=== PATIENT | female | born 1990 | race Caucasian/White ===

== ENCOUNTER 2020-02-04 13:18 | Outpatient (CLI) | payer BC, SELFPAY ==
--- NOTE | 2020-02-04 13:44 | CT_ITS ---
WS: [id number] CT HEAD WITH AND WITHOUT CONTRAST HISTORY: HISTORY OF BRAIN TUMOR, prior surgery 11 years ago. Headaches. TECHNIQUE: Noncontrast 2.5 mm axial images obtained from the vertex to the skull base. Additional dori ging performed at 2.5 mm axial images status post IV contrast. Bone and soft tissue windows are revie wed. All CT scans at [facility] use at least one of these dose optimization techniques: a utomated exposure control; mA and/or kV adjustment per patient size (includes targeted exams where do se is matched to clinical indication); or iterative reconstruction. CONTRAST: Omnipaque 300; 95 mL IV. DLP: 1984.08 mGy-cm. COMPARISON: Noncontrast head CT 06/21/2016 No acute intracranial hemorrhage, edema or midline shift. No enhancing mass or vascular malformations identified. Dural venous sinuses are normally enhancing. Visualized [place] is unremarkable. Paranasal sinuses as visualized: Clear. Mastoid air cells: Clear. Calvarium and scalp: Prior LEFT parietal temporal craniectomy site is stable. CT/CT head wo/w con [id number] IMPRESSION: 1. Stable CT head with and without contrast. 2. No enhancing lesions or significant volume loss. 3. Prior LEFT parietal temporal craniectomy site.
[2020-02-04] MEDS: iohexol 300 mg/mL 100 mL Btl IV (14:20)
== END 2020-02-04 13:19 | disposition home or self-care (01) ==
PROVIDERS: Family Provider Family Medicine; PCP Family Medicine; Visit Provider Family Medicine
DX: Z85.841 Personal history of malignant neoplasm of brain
CPT/HCPCS: 70470; Q9967

== ENCOUNTER 2021-01-29 14:12 | Outpatient (CLI) | payer BC, SELFPAY ==
--- NOTE | 2021-01-29 | US_ITS ---
WS: [id number] RIGHT UPPER QUADRANT ULTRASOUND HISTORY: ELEVATED LIVER ENZYMES COMPARISON: None available. Liver: 18.0 cm in length. Moderately enlarged liver. Severe hepatic steatosis. No bile duct dilatatio n identified. The entire liver is not imaged. Gallbladder: Normally distended gallbladder with no stones or wall thickening. CBD: 0.2 cm Pancreas: Poorly visualized. Right kidney: 12.2 cm in length. Normal size and echogenicity. No hydronephrosis or mass. Aorta and IVC: Unremarkable abdominal aorta and IVC. No ascites. US/US liver [id number] IMPRESSION: 1. Marked hepatic steatosis and hepatomegaly. 2. Negative gallbladder.
== END 2021-01-29 14:13 | disposition home or self-care (01) ==
LOC: RADOUTREAD 14:15
PROVIDERS: PCP Family Medicine; Visit Provider Family Medicine
DX: R94.5 Abnormal results of liver function studies (principal)
CPT/HCPCS: 76705

== ENCOUNTER → 2021-04-18 10:47 | Outpatient (BNVA) | payer BC, SELFPAY | PROVIDERS: PCP Family Medicine; Visit Provider Nurse Practitioner | DX: U07.1 COVID-19 (principal); R05 Cough | CPT/HCPCS: 71046; 80053; 85025; 85379; 86140 ==

== ENCOUNTER → 2021-04-19 15:55 | Outpatient (BNVA) | payer BC, SELFPAY | PROVIDERS: PCP Family Medicine; Visit Provider Nurse Practitioner | DX: U07.1 COVID-19 (principal); E11.65 Type 2 diabetes mellitus with hyperglycemia | CPT/HCPCS: 81000 ==

== ENCOUNTER → 2021-10-03 09:05 | Outpatient (BNVA) | payer BC, SELFPAY | PROVIDERS: PCP Family Medicine; Visit Provider Nurse Practitioner | DX: E11.65 Type 2 diabetes mellitus with hyperglycemia (principal) | CPT/HCPCS: 80053; 80061; 83036; 84443 ==

== ENCOUNTER → 2021-10-09 10:31 | Outpatient (BNVA) | payer BC, SELFPAY | PROVIDERS: PCP Family Medicine; Visit Provider Nurse Practitioner | DX: R74.8 Abnormal levels of other serum enzymes (principal); Z11.59 Encounter for screening for other viral diseases; K76.0 Fatty (change of) liver, not elsewhere classified | CPT/HCPCS: 80074 ==

== ENCOUNTER 2021-11-19 14:49 | Outpatient (CLI) | payer BC, SELFPAY ==
--- NOTE | 2021-11-19 15:30 | CT_ITS ---
WS: [id number] CT ABDOMEN WITH CONTRAST HISTORY: K76.0 - Fatty (change of) liver, not elsewhere classified Contiguous single phase 5 mm axial imaging performed to the abdomen. Oral contrast has not been provi ded. Coronal and sagittal reformats are submitted. All CT scans at [facility] use at least on e of these dose optimization techniques: automated exposure control; mA and/or kV adjustment per carol ann ent size (includes targeted exams where dose is matched to clinical indication); or iterative reconst ruction. CONTRAST: None DLP: 828.63 mGy.cm COMPARISON: 08/30/2007 Lower thorax: Unremarkable. Liver: Low-attenuation throughout the liver. Hounsfield units suggesting some very early mild hepatic steatosis. No mass or bile duct dilatation. Gallbladder: Gallbladder is contracted without adjacent inflammation. Pancreas: Normal. Spleen: Normal. Adrenals: Normal. Right kidney: 2 mm nonobstructing calcification upper pole RIGHT kidney. Otherwise negative. Left kidney: Normal. Aorta: Normal. GI tract: As visualized are normal. Normal appendix. No adenopathy or free fluid. Abdominal wall: Small fat-containing umbilical hernia. Visualized osseous structures: Unremarkable. CT/CT abdomen wo con [id number] IMPRESSION: 1. Very mild early changes of hepatic steatosis. No hepatomegaly. 2. Contracted gallbladder, probably due to nonfasting state. 3. Small fat-containing umbilical hernia.
== END 2021-11-19 14:50 | disposition home or self-care (01) ==
LOC: RAD 14:50
PROVIDERS: PCP Nurse Practitioner; Visit Provider Nurse Practitioner
DX: K76.0 Fatty (change of) liver, not elsewhere classified (principal); K42.9 Umbilical hernia without obstruction or gangrene; E66.9 Obesity, unspecified; E11.65 Type 2 diabetes mellitus with hyperglycemia
CPT/HCPCS: 74150

== ENCOUNTER → 2021-12-18 08:38 | Outpatient (BNVA) | payer BC, SELFPAY | PROVIDERS: PCP Nurse Practitioner; Visit Provider Nurse Practitioner | DX: E11.65 Type 2 diabetes mellitus with hyperglycemia (principal) | CPT/HCPCS: 80053; 83036 ==

== ENCOUNTER → 2022-03-19 07:56 | Outpatient (BNVA) | payer BC, SELFPAY | PROVIDERS: PCP Nurse Practitioner; Visit Provider Nurse Practitioner | DX: E11.65 Type 2 diabetes mellitus with hyperglycemia (principal) | CPT/HCPCS: 80053; 83036 ==

== ENCOUNTER → 2022-03-20 08:54 | Outpatient (BNVA) | payer BC, SELFPAY | PROVIDERS: PCP Nurse Practitioner; Visit Provider Nurse Practitioner | DX: E11.65 Type 2 diabetes mellitus with hyperglycemia (principal); I10 Essential (primary) hypertension; H65.90 Unspecified nonsuppurative otitis media, unspecified ear | CPT/HCPCS: 85025 ==

== ENCOUNTER → 2022-04-04 11:44 | Outpatient (BNVA) | payer BC, SELFPAY | PROVIDERS: PCP Nurse Practitioner; Visit Provider Nurse Practitioner Women's Health | DX: Z01.419 Encounter for gynecological examination (general) (routine) without abnormal findings (principal) | CPT/HCPCS: 87624 ==

== ENCOUNTER → 2022-04-16 13:38 | Outpatient (BNVA) | payer BC, SELFPAY | PROVIDERS: PCP Nurse Practitioner; Visit Provider Nurse Practitioner Women's Health | DX: N93.9 Abnormal uterine and vaginal bleeding, unspecified (principal); N85.2 Hypertrophy of uterus; N83.202 Unspecified ovarian cyst, left side | CPT/HCPCS: 76830 ==

== ENCOUNTER → 2022-04-18 08:43 | Outpatient (BNVA) | payer BC, SELFPAY | PROVIDERS: PCP Nurse Practitioner; Visit Provider Nurse Practitioner Women's Health | DX: N93.9 Abnormal uterine and vaginal bleeding, unspecified (principal) | CPT/HCPCS: 88305 ==

== ENCOUNTER → 2022-05-23 09:21 | Outpatient (BNVA) | payer BC, SELFPAY | PROVIDERS: PCP Nurse Practitioner; Visit Provider Nurse Practitioner Women's Health | DX: D64.9 Anemia, unspecified (principal); N93.9 Abnormal uterine and vaginal bleeding, unspecified | CPT/HCPCS: 82607; 82728; 82746; 83550; 85025 ==

== ENCOUNTER → 2022-06-10 08:00 | Outpatient (BNVA) | payer BC, SELFPAY | PROVIDERS: PCP Nurse Practitioner; Visit Provider Nurse Practitioner | DX: E11.65 Type 2 diabetes mellitus with hyperglycemia (principal); D64.9 Anemia, unspecified; N93.9 Abnormal uterine and vaginal bleeding, unspecified | CPT/HCPCS: 80053; 83036; 85025 ==

== ENCOUNTER 2022-07-05 10:39 | Outpatient (CLI) | payer BC, SELFPAY ==
[2022-07-05 11:45] LABS: Basophils % 0.3 %; Eosinophils # 0.1 10^3/uL (0.0-0.8); Eosinophils % 1.6 %; Hematocrit 39.9 % (37.0-47.0); Hemoglobin 13.2 g/dL (11.5-15.3); Lymphocytes # 2.5 10^3/uL (0.8-4.8); Lymphocytes % 37.5 %; Mean Corpuscular HGB Conc 33.1 g/dL (30.0-36.0); Mean Corpuscular Volume 81.6 fl (81-99); Mean Platelet Volume 9.2 fL (7.4-10.4); Monocytes # 0.5 10^3/uL (0.2-0.9); Monocytes % 7.8 %; Neutrophils % 52.5 %; Nucleated Red Blood Cells % 0 %; Platelet Count 320 10^3/cmm (130-400); Red Blood Count 4.89 10^6/uL (4.1-5.3); Red Cell Distribution Width 14.8 % (12.1-15.1); White Blood Count 6.7 10^3/uL (4.0-10.0)
== END 2022-07-05 10:40 | disposition home or self-care (01) ==
PROVIDERS: Nurse Practitioner Women's Health; PCP Nurse Practitioner; Visit Provider Nurse Practitioner
DX: D64.9 Anemia, unspecified (principal); N93.9 Abnormal uterine and vaginal bleeding, unspecified
CPT/HCPCS: 85025

== ENCOUNTER 2022-08-29 13:46 | Observation (INO) | payer BC, SELFPAY ==
[2022-08-26 10:21] VITALS: BMI 37.4
--- NOTE | 2022-08-26 10:50 | P.ANESASSM_ITS ---
Pre-Anesthetic Assessment Height/Weight: Height 1.65 m Weight 102.058 kg Operation Date: 08/29/22 08:50 Proposed Procedures p Laparoscopic Assist Vaginal Hysterectomy 60860, N93.9,D25.9(Not Applicable) - Austin Howell MD Familial anesthetic complications: None Social No alcohol and No tobacco Exam alert, oriented x 3, clear to auscultation bilaterally and regular rate & rhythm Airway Mallampati: Class III Dentition: full Pulmonary None reported CV/HEM Anemia and Hypertension None reported Hepatic fatty liver GI Gastroesophageal Reflux Disease Metabolic Diabetes Mellitus and Morbid Obesity [facility] None reported Neuropsych None reported no issues w/ since tumor removal/craniotomy 2008 Anesthetic Plan ASA status: 2 Anesthesia: General Risk of > 500 ml blood loss (7ml/kg in children): No Medications/Allergies Home Medications Medication Instructions Recorded Confirmed Last Taken Type aspirin 81 mg tablet,delayed 81 mg PO DAILY 04/18/21 08/26/22 08/23/22 History release cholecalciferol (vitamin D3) 50 50 mcg PO DAILY 04/18/21 08/26/22 08/25/22 21:00 History mcg (2,000 unit) capsule pen needle, diabetic 33 gauge x #100 ea 12/24/21 08/26/22 Unknown Rx / milk thistle 150 mg capsule 150 mg PO DAILY 04/04/22 08/26/22 08/25/22 21:00 History norethindrone acetate 5 mg tablet 5 mg PO DAILY #90 tabs 05/03/22 08/26/22 08/25/22 21:00 Rx dapagliflozin 5 mg tablet (Farxiga) 5 mg PO QAM #30 tabs 06/12/22 08/26/22 08/26/22 07:30 Rx metformin 500 mg tablet,extended 500 mg PO BID #60 tabs 06/12/22 08/26/22 08/25/22 21:00 Rx release 24 hr valsartan 160 mg tablet (Diovan) 160 mg PO DAILY #30 tabs 06/12/22 08/26/22 08/25/22 08:00 Rx liraglutide 0.6 mg/0.1 mL (18 mg/3 1.8 mg SUBCUT DAILY 08/26/22 08/26/22 08/25/22 21:00 History mL) subcutaneous pen injector (Victoza 3-Octaviano) Allergies Allergy/AdvReac Type Severity Reaction Status Date / Time erythromycin base Allergy rash Verified 08/26/22 10:16 [facility] Anesthesia Medical History Diabetes mellitus with hyperglycemia Essential hypertension Fatty liver History of COVID-19 No pertinent past medical history neghx: thyroid,dvt/pe PCP: Elana Lizarraga Obesity (BMI 30-39.9) Surgical History History of bilateral tubal ligation History of brain tumor (~05/2009) Benign--performed by Dr. Fishman Neurosurgery [facility] History of 1)--2009--primary section for CPD; Dr. Stevens 2)--2013; repeat with BTL performed by Dr. Stevens Family History Family/Other Breast cancer Maternal Great Aunt--dx age 70's Mother Diabetes Hypertension Father Diabetes Grandfather Diabetes Maternal and Paternal Grandmother Diabetes Maternal and Paternal Hypertension Maternal Denies family history of Colon cancer Ovarian cancer Hyperlipidemia Uterine cancer Thyroid disease Stroke Social History Smoking and tobacco status: never smoked Female Reproductive History Date of last menstrual period: 09/11/21 Para: 2 Data Anesthesia Cardiac Studies: No Data to Display
[2022-08-26 11:08] LABS: Add Urine Microscopic? NO; Charge for UA Resulting for Rev
[2022-08-26 11:12] LABS: Basophils % 0.5 %; Eosinophils # 0.1 10^3/uL (0.0-0.8); Eosinophils % 1.2 %; Hematocrit 41.8 % (37.0-47.0); Hemoglobin 13.5 g/dL (11.5-15.3); Lymphocytes # 2.1 10^3/uL (0.8-4.8); Lymphocytes % 36.6 %; Mean Corpuscular HGB Conc 32.3 g/dL (30.0-36.0); Mean Corpuscular Hemoglobin 26.4 pg (28.0-34.0); Mean Corpuscular Volume 81.8 fl (81-99); Mean Platelet Volume 9.6 fL (7.4-10.4); Monocytes # 0.4 10^3/uL (0.2-0.9); Monocytes % 7.2 %; Neutrophils # 3.15 10^3/uL (1.8-7.7); Neutrophils % 54.3 %; Nucleated Red Blood Cells % 0 %; Platelet Count 315 10^3/cmm (130-400); Red Blood Count 5.11 10^6/uL (4.1-5.3); Red Cell Distribution Width 14.4 % (12.1-15.1); White Blood Count 5.8 10^3/uL (4.0-10.0)
[2022-08-26 11:14] LABS: Bilirubin Urine Neg (Negative); Blood Urine Neg (Negative); Glucose Urine UA 1+ (Normal); Ketones Urine Negative (Negative); Leukocyte Esterase Urine Negative (Negative); Nitrate Urine Negative (Negative); Protein Urine Neg (Negative); Urine Appearance Clear (CLEAR); Urine Color Dark Yellow (Yellow); Urobilinogen Urine Norm (Negative); pH Urine 5 (5-7)
[2022-08-26 11:23] LABS: OR HCG Qualitative Urine Negative (Negative)
[2022-08-26 11:26] LABS: Alanine Aminotransferase 50 U/L (0-33); Albumin Level 4.4 g/dL (3.5-5.2); Alkaline Phosphatase 56 U/L (35-105); Aspartate Amino Transferase 33 U/L (0-32); Blood Urea Nitrogen 8 mg/dL (6-20); Calcium 9.3 mg/dL (8.5-10.5); Carbon Dioxide 25 mmol/L (22-29); Chloride 97 mmol/L (98-107); Globulin 3.1 g/dL (1.3-4.6); Glomerular Filtration Rate 116.6 mL/min (90-130); Glucose 100 mg/dL (65-115); Osmolality Calculated 276 mOsm/kg (285-295); Sodium 134 mmol/L (136-145); Total Bilirubin 0.6 mg/dL (0.15-1.2); Total Protein 7.5 g/dL (6.6-8.7)
[2022-08-29] VITALS (25 sets, daily range): BP systolic 98–153; BP diastolic 59–112; PULSE 69–95; RESP 10–23; TEMP 36.5–37.5; O2SAT 93–100; BMI 37.4
[2022-08-29 07:48] LABS: OR HCG Qualitative Urine Negative (Negative)
[2022-08-29 08:01] LABS: Glucose Point of Care 148 mg/dL (70-110)
[2022-08-29] MEDS: sodium chloride 0.9% 500 ML IV (08:02)
[2022-08-29] MEDS: scopolamine 1.5 Patch 1 PATCH TRANSDERMA (08:02)
[2022-08-29] MEDS: sodium chloride 0.9% 1,000 ML 30 ML IV (08:59)
--- NOTE | 2022-08-29 09:08 | W.PM.OPSUD ---
Surgery/Procedure H&P Update DATE OF PROCEDURE: August 29, 2022 DATE H&P PERFORMED: 08/26/22 H&P UPDATE INFORMATION: I have reviewed H&P completed within last 30 days, I have examined patient prior to procedure and No changes to prior documentation PREOP DIAGNOSIS: Menorrhagia PLANNED PROCEDURE: Operation Date: 08/29/22 08:30 Proposed Procedures p Laparoscopic Assist Vaginal Hysterectomy 75640, N93.9,D25.9(Not Applicable) - Austin Howell MD
[2022-08-29] MEDS: ceFAZolin 2,000 MG in sodium chloride 0.9% (plus) 50 ML 100 MG IV (09:39)
--- NOTE | 2022-08-29 11:27 | P.OP_ITS ---
Operative Report Date of procedure: August 29, 2022 Pre-op diagnosis: Preop Diagnosis Menorrhagia Post-op diagnosis: Same as above Post-op findings: Bladder adhesions to the anterior uterine wall Procedure done: Laparoscopic-assisted vaginal hysterectomy Specimens removed/disposition: Uterus Estimated blood loss (mL): 25 IV fluids (mL): 800 Urine output (mL): 200 Procedure: After discussing informed consent again, the patient was taken to the operating room where general anesthesia was administered. She was placed in the dorsal lithotomy position in low stirrups and prepped and draped in sterile fashion. Pre-Procedure Time-Out verifying the correct patient identity, correct procedure verified with consent, correct site and side, correct patient position, availability of correct implants and any special equipment or requi rements was performed and acknowledge by the OR team. After the initial preparation, the procedure commenced at the vagina. With a Bookwalter vaginal retractor was place to visualize the cervix; the a nterior and posterior lips of the cervix were separately grasped and clamped with iain tooth tenaculum. The cervix was then dilated to a #6 hegar dilator and a uterine manipulator within the uterine cavity for manipulation purposes being careful not to puncture the uterus. A Galarza catheter was placed in the bladder. Attention was then turned to the abdomen. The umbilical region was infiltrated with 0.5% Marcaine with epinephrine. Following infiltration with Marcaine, an intraumbilical incision was made and the Verres needle was gently advanced taking care to feel for the typical sensation of penetrating the peritoneum. With CO2 infiltration, an opening pressure of 5 mmHg was noted, and following this, a pneumoperitoneum of 15 mmHg was created. A 5 mm Optiview trocar was then passed through the same incision under direct visualization. Trocar was removed and the laparoscope was then inserted through the trocar sleeve. Visualization of the peritoneal cavity was then obtained and a brief inspection did not reveal any signs of complications from entry. Under direct observation, a second incision was made 3 cm above the symphysis pubis. Once the placement of the ports was complete, the actual laparoscopic procedure began. The pelvic contents were visualized and noted an enlarged irregular uterus, deep cul-de-sac, normal bilateral fallopian tubes and ovaries normal, normal appendix, and both ureters were identified crossing the pelvic brim and pelvic sidewall. The left mesosalpinx ligament was grasped and was coagulated/sealed and then transected with the Enseal device. The mesosalpinx was then sequentially, clamped, ligated, and cut using the Enseal device working alongside the length of the tube and towards the cornua. The left round ligament was grasped coagulated/sealed and transected using Enseal device. The left broad ligament was opened down to the level of the uterine artery and vein. The right mesosalpinx was grasped and the tuboovarian ligament was coagulat ed/sealed and then transected with the Enseal device. The mesosalpinx was then sequentially, clamped, ligated, and cut using the Enseal device working alongside the length of the tube and towards the cornua. The right round ligament was grasped coagulated/sealed and then transected with the Enseal device, and the right broad ligament was opened down to the level of the right uterine artery and vein. Peritoneum of the lower uterine segment was entered using laparoscopic blake, and the bladder adhesions were dissected off the lower uterine segment using blunt dissection. Careful inspection revealed complete hemostasis. Attention was then turned to the vaginal aspect of the surgery. The Galarza catheter was clamped. A Bookwalter vaginal retractor was placed in the vagina and the uterine manipulator was removed. The tenaculum was repositioned anteriorly and posteriorly. A circumferential incision was made at the cervical vaginal reflection using cautery. This was undermined first anteriorly and a colpotomy made without difficulty. This was then repeated posteriorly and a similar colpotomy made. Beginning first on the patient's left, the uterosacral and cardinal ligament was clamped, sealed, divided with the Enseal device and suture ligated. Two bites were required to reach the previous dissection margin of the left side. The same process was then repeated on the patient's right hand side, at which point, the specimen was completely freed. Once the sutures had been placed and the pedicles secured, the uterus along with both tubes and ovaries were removed transvaginally without difficulty. All pedicles were inspected and hemostasis was confirmed. The patietn was given indigo carmine. The vaginal vault was then oversewn with a running locking Vicryl suture, securing first the posterior edge of the cuff followed by the anterior edge. Good hemostasis was obtained. Two [id number] sutures were then placed across the vaginal vault to close it. Once these had been tied off, all sutures were trimmed. The Galarza catheter was noted yielding yellow urine. All instruments were removed from the vagina at this time. Then attention was again turned back to the abdomen and inspected the abdomen to ensure complete hemostasis. Once the entire abdomen was inspected. The ports were then removed under direct visualization being sure to note hemostasis of the port sites on removal. The incisions were then closed with interrupted 3-0 Vicryl sutures and Dermabond adhesive. The patient tolerated the procedure well, anesthesia reversed, and the patient was taken to the recovery room in stable condition. All sponges, instruments, and sharps were counted and correct x 3.
[2022-08-29] MEDS: fentaNYL 50 mcg/mL INJ 2mL IVP (11:48)
[2022-08-29] MEDS: midazolam 1 mg/mL INJ 2 mL 2 MG IVP (12:01)
--- NOTE | 2022-08-29 14:11 | ANE.PACU2 ---
Inpatient post-anesthesia follow up: Airway intact: Yes Vital signs: Temperature 98.7 F Pulse Rate 69 Respiratory Rate 12 Blood Pressure 120/89 Pulse Oximetry 100 Oxygen Delivery Me thod Room Air Oxygen Flow Rate 10 Fraction of Inspir ed Oxygen Hydration adequate: Yes Nausea and vomiting: No Pain level: 1 Mental status: Baseline
[2022-08-29] MEDS: sodium chloride 0.9% 1,000 ML 125 ML IV ×2 (14:24→21:37)
[2022-08-29] MEDS: ketorolac 30 mg/mL INJ IVP ×2 (14:24→20:05)
[2022-08-29] MEDS: docusate sodium 100 mg Capsule PO (17:17)
[2022-08-29] MEDS: HYDROcodone-acetaminophen 5-325 mg Tablet PO (17:17)
[2022-08-29] MEDS: metformin XR 500 MG Tablet PO (18:08)
[2022-08-29 20:31] LABS: Glucose Point of Care 267 mg/dL (70-110)
[2022-08-29] MEDS: insulin lispro 100 unit/1 mL SUBCUT (21:34)
[2022-08-30] MEDS: ketorolac 30 mg/mL INJ IVP (02:57)
[2022-08-30 05:10] VITALS: BP 93/50; PULSE 69; TEMP 36.7; O2SAT 98
[2022-08-30] MEDS: HYDROcodone-acetaminophen 5-325 mg Tablet PO (05:26)
[2022-08-30 05:49] LABS: Hematocrit 35.7 % (37.0-47.0); Hemoglobin 11.5 g/dL (11.5-15.3); Mean Corpuscular HGB Conc 32.2 g/dL (30.0-36.0); Mean Corpuscular Hemoglobin 26.6 pg (28.0-34.0); Mean Corpuscular Volume 82.6 fl (81-99); Mean Platelet Volume 9.4 fL (7.4-10.4); Platelet Count 262 10^3/cmm (130-400); Red Blood Count 4.32 10^6/uL (4.1-5.3); Red Cell Distribution Width 14.5 % (12.1-15.1)
--- NOTE | 2022-08-30 09:17 | P.DS_ITS ---
Discharge Providers HOOP MAKER MACHINE Date of Admission: 08/29/22 13:46 Date of Discharge: 08/30/22 Attending Provider at Admission: Austin Howell MD Attending Provider at Discharge: Austin Howell MD Primary HOOP MAKER MACHINE: Austin Howell MD Primary Care Provider: WILLIE Owens Reason for Visit Reason for Visit: N93.9, D25.9 Hospital Course Hospital Course Mrs. Parkinson 31-year-old female with a history of abnormal uterine bleeding unresponsive to medical management was admitted for planned laparoscopic- assisted vaginal hysterectomy due to previous surgical history. A laparoscopic- assisted vaginal hysterectomy was performed without complications. Overnight observation was uneventful. She is afebrile and hemodynamically stable postoperative day 1. Tolerating diet well. Ambulating without difficulty. Pain well under control. Patient was counseled regarding pelvic rest for 6 weeks (no sex, no tampons, no vaginal douches). Return to the emergency room if any fever, increased bleeding or pain. Physical Exam Narrative: GA: Alert and oriented ?3. HEENT: WNL. Heart: Regular rate and rhythm. Lungs: Clear to auscultation bilaterally. Abdomen: Bowel sounds present, minimal tenderness, incision clean and dry, no redness, pain or edema. SCIENTIFIC PROGRAMMER ANALYST: Light spotting bleeding. Extremities: No edema, no cyanosis, no calves pain. Urinary Catheter Management: Galarza: Cath Placed During This Visit: yes, but has since been removed by the nurse Reason for Continuing Indwelling Catheter: Decision to DC Catheter Urinary Catheter Date of Insertion: 08/29/22 Urinary Catheter Time of Insertion: 10:08 Date Urinary Catheter Removed: 08/30/22 Time Urinary Catheter Discontinued: 05:10 History History History 2 Term 2 0 Miscarriages/Ectopic 0 Living Children 2 Discharge Data Studies Completed and Pending Pending at discharge Category Date Time Status ES surgery / GI images Routine Exams 08/29/22 11:39 Taken Pathology: Surgical [PTH] Routine Pth 08/29/22 11:39 Received Laboratory Results WBC 9.0 10^3/uL (4.0-10.0) 08/30/22 05:40 RBC 4.32 10^6/uL (4.1-5.3) 08/30/22 05:40 Hgb 11.5 g/dL (11.5-15.3) 08/30/22 05:40 Hct 35.7 % (37.0-47.0) L 08/30/22 05:40 MCV 82.6 fl (81-99) 08/30/22 05:40 MCH 26.6 pg (28.0-34.0) L 08/30/22 05:40 MCHC 32.2 g/dL (30.0-36.0) 08/30/22 05:40 RDW 14.5 % (12.1-15.1) 08/30/22 05:40 Plt Count 262 10^3/cmm (130-400) 08/30/22 05:40 MPV 9.4 fL (7.4-10.4) 08/30/22 05:40 Neut % (Auto) 54.3 % 08/26/22 Unknown Lymph % (Auto) 36.6 % 08/26/22 Unknown Alfalfa % (Auto) 7.2 % 08/26/22 Unknown Eos % (Auto) 1.2 % 08/26/22 Unknown Baso % (Auto) 0.5 % 08/26/22 Unknown Neut # (Auto) 3.15 10^3/uL (1.8-7.7) 08/26/22 Unknown Lymph # (Auto) 2.1 10^3/uL (0.8-4.8) 08/26/22 Unknown Alfalfa # (Auto) 0.4 10^3/uL (0.2-0.9) 08/26/22 Unknown Eos # (Auto) 0.1 10^3/uL (0.0-0.8) 08/26/22 Unknown Baso # (Auto) 0.0 10^3/uL (0.0-0.1) 08/26/22 Unknown Nucleated RBC % (auto) 0 % 08/26/22 Unknown Nucleated RBCs # 0.0 /100WBC 08/26/22 Unknown Sodium 134 mmol/L (136-145) L 08/26/22 Unknown Potassium 4.0 mmol/L (3.5-5.1) 08/26/22 Unknown Chloride 97 mmol/L (98-107) L 08/26/22 Unknown Carbon Dioxide 25 mmol/L (22-29) 08/26/22 Unknown Anion Gap 16.0 (5-19) 08/26/22 Unknown BUN 8 mg/dL (6-20) 08/26/22 Unknown Creatinine 0.6 mg/dL (0.5-0.9) 08/26/22 Unknown GFR Calculation 116.6 mL/min (90-130) 08/26/22 Unknown Glucose 100 mg/dL (65-115) 08/26/22 Unknown POC Glucose 267 mg/dL (70-110) H 08/29/22 20:07 Calculated Osmolality 276 mOsm/kg (285-295) L 08/26/22 Unknown Calcium 9.3 mg/dL (8.5-10.5) 08/26/22 Unknown Total Bilirubin 0.6 mg/dL (0.15-1.2) 08/26/22 Unknown AST 33 U/L (0-32) H 08/26/22 Unknown ALT 50 U/L (0-33) H 08/26/22 Unknown Alkaline Phosphatase 56 U/L (35-105) 08/26/22 Unknown Total Protein 7.5 g/dL (6.6-8.7) 08/26/22 Unknown Albumin 4.4 g/dL (3.5-5.2) 08/26/22 Unknown Globulin 3.1 g/dL (1.3-4.6) 08/26/22 Unknown Urine Color Dark yellow (Yellow) 08/26/22 10:35 Urine Appearance Clear (CLEAR) 08/26/22 10:35 Urine pH 5 (5-7) 08/26/22 10:35 Ur Specific Fay 1.020 (1.005-1.030) 08/26/22 10:35 Urine Protein Neg (Negative) 08/26/22 10:35 Urine Glucose (UA) 1+ (Normal) H 08/26/22 10:35 Urine Ketones Negative (Negative) 08/26/22 10:35 Urine Blood Neg (Negative) 08/26/22 10:35 Urine Nitrate Negative (Negative) 08/26/22 10:35 Urine Bilirubin Neg (Negative) 08/26/22 10:35 Urine Urobilinogen Norm mg/dL (Negative) 08/26/22 10:35 Ur Leukocyte Esterase Negative (Negative) 08/26/22 10:35 Urine HCG, Qual Negative (Negative) 08/29/22 07:47 Blood Type O Positive 08/29/22 07:44 Rho(D) Type Positive 08/29/22 07:44 Antibody Screen Negative 08/29/22 07:44 Vitals Last Vital Signs Temp 98.1 F 08/30/22 05:10 Pulse 69 08/30/22 05:10 Resp 17 08/29/22 21:00 BP 93/50 08/30/22 05:10 Pulse Ox 98 08/30/22 05:10 O2 Del Method 08/30/22 05:10 O2 Flow Rate 10 08/29/22 11:40 Discharge Plan Discharge Patient Disposition: Home Condition: Stable Prescriptions: New hydrocodone-acetaminophen 5-325 mg tablet 1 tab PO Q4H PRN (Reason: pain) Qty: 20 0RF acetaminophen 325 mg capsule 325 mg PO Q4H PRN (Reason: fever or postoperative pain) Qty: 60 0RF ibuprofen 800 mg tablet 800 mg PO TID PRN (Reason: pain) Qty: 60 0RF Continued aspirin 81 mg tablet,delayed release (DR/EC) 81 mg PO DAILY cholecalciferol (vitamin D3) 50 mcg (2,000 unit) capsule 50 mcg PO DAILY milk thistle 150 mg capsule 150 mg PO DAILY Rx Instructions: give with meal/snack norethindrone acetate 5 mg tablet 5 mg PO DAILY Qty: 90 0RF Farxiga 10 mg tablet 10 mg PO QAM Qty: 30 2RF Victoza 3-Octaviano 0.6 mg/0.1 mL (18 mg/3 mL) pen injector 1.8 mg SUBCUT DAILY Qty: 9 2RF metformin 500 mg tablet extended release 24 hr 500 mg PO BID Qty: 60 2RF (DME) pen needle, diabetic 33 gauge x 5/32 needle See Rx Instructions .ROUTE .MEDSUPPLY Qty: 100 5RF Rx Instructions: 1 times day valsartan [Diovan] 160 mg tablet 160 mg PO DAILY Qty: 30 2RF Discharge Orders: Discharge Order (Routine); Ordered 08/30/22 Ordered By: Austin Howell Referrals: Austin Howell MD [Physician] - 09/17/22 10:30 am (* Your 2 week appointment is with Dr. Howell on 09/17/2021 at 10:30am * Your 6 week follow up appointment is with Dr. Howell 10/14/2021 at 12:45pm) Discharge Diet: Advance as tolerated Discharge Activity: Limit activity as instructed Patient Instructions: Laparoscopic Hysterectomy (DC), Vaginal Hysterectomy (DC), OB Discharge Report, OB Laproscopic Surgery - [facility], OB Anesthesia Instructions, OB Food/Drug Interaction Guide, Opioid Safety Activity Restrictions/Additional Instructions: 1. Please call [facility] on next working day to make your post-operative appointment in 2 weeks. 2. Please stay home until you come back to the clinic on first post-operative check up. 3. Please follow instructions on your medications CAREFULLY. 4. If you have abdominal incision, do not cover it unless dressing is necessary because of drainage. OK to shower, but avoid bath. Leave steri-strips until they fall off. If they are still on one week after surgery, you may remove them. 5. If you had vaginal surgery or vaginal repair, Dr. Howell may instruct you to take SITZ bath. 6. Yellow, blood tinged odorous vaginal discharge is usually normal after hysterectomy or vaginal surgeries. 7. No sexual intercourse, tampons, or douches until you are completely released from the post-operative care. 8. Avoid constipation by eating right and maybe using some Metamucil or Milk of Magnesia. 9. All prescription refills are given during the working hours. Please do no wait till it runs out. Call the clinic at [phone] before your medication runs out. The clinic will get in touch with your doctor to prescribe medications if necessary. 10. Please remain within 40 mile radius from our hospital because emergencies do happen now and then during the post-operative period. 11. If you have stairs at home, take one step at a time slowly and minimize the number of trips. It helps to stay in one floor for the next few days. No lifting except what you can lift by one hand until you are released from the post-operative care. 12. Driving is discouraged until you are well healed. It may be 3-4 weeks before you feel strong enough to drive. You should be able to turn and look through the rear window without pain and you should be able to push the brake pedal very hard without pain before you drive. No fast rules, but SAFETY should be your primary concern. DO NOT drive if you are on sedating medications such as narcotics. 13. Call the clinic (during working hours) to make urgent appointment or go to the Emergency room, if any of the following occurs: i. Vaginal bleeding becomes heavy, more than a period. ii. Incision becomes red and sore, or drains pus. iii. Your temperature is over 100.4 or you have chill. iv. IV site becomes red and swollen (a little ``knot?? is usually OK) v. Persistent nausea and vomiting vi. Persistent constipation or diarrhea vii. Rash or allergic reaction to medications. Discharge Attestations HOOP MAKER MACHINE Time Spent in Discharge Care*: greater than 30 min Coding Level of Care Code Acute Volunteer Patient Representative for Brooke Weinstein
[2022-08-30 09:56] VITALS: BP 114/63; PULSE 71; RESP 18; O2SAT 98
[2022-08-30 10:00] VITALS: BP 114/63; PULSE 71; RESP 18; TEMP 36.6; O2SAT 98
== END 2022-08-30 10:00 | disposition home or self-care (01) ==
LOC: OBGYN 13:46
PROVIDERS: Anesthesiology; Admitting Provider Obstetrics & Gynecology; PCP Nurse Practitioner; Visit Provider Obstetrics & Gynecology
PROC: 0UT9FZZ Resection of Uterus, Via Natural or Artificial Opening With Percutaneous Endoscopic Assistance (ICD-10-PCS; CPT 58552; principal; 2022-08-29 08:30)
DX: N92.0 Excessive and frequent menstruation with regular cycle (principal); Z79.82 Long term (current) use of aspirin
CPT/HCPCS: 58552; 36415; 36416; 80053; 81003; 81025; 82962; 84703; 85025; 85027; 86850; 86900; 88307; 96372; G0378; J0690; J1100; J1170; J1200; J1815; J1885; J2250; J2405; J2704; J2710; J3010; J3490; J7030; J7040; Q9968

== ENCOUNTER → 2022-11-19 10:55 | Outpatient (BNVA) | payer BC, SELFPAY | PROVIDERS: PCP Nurse Practitioner; Visit Provider Nurse Practitioner | DX: E11.65 Type 2 diabetes mellitus with hyperglycemia (principal) | CPT/HCPCS: 80053; 80061; 83036 ==

== ENCOUNTER → 2023-02-12 08:39 | Outpatient (BNVA) | payer BC, SELFPAY | PROVIDERS: PCP Nurse Practitioner; Visit Provider Nurse Practitioner | DX: E11.65 Type 2 diabetes mellitus with hyperglycemia (principal); I10 Essential (primary) hypertension | CPT/HCPCS: 80053; 80061; 81000; 83036; 85025 ==

== ENCOUNTER → 2023-05-07 08:38 | Outpatient (BNVA) | payer BC, SELFPAY | PROVIDERS: PCP Nurse Practitioner; Visit Provider Nurse Practitioner | DX: E11.65 Type 2 diabetes mellitus with hyperglycemia (principal); I10 Essential (primary) hypertension | CPT/HCPCS: 80053; 83036; 85025 ==

== ENCOUNTER → 2023-05-12 16:22 | Outpatient (BNVA) | payer BC, SELFPAY | PROVIDERS: PCP Nurse Practitioner; Visit Provider Nurse Practitioner | DX: E11.65 Type 2 diabetes mellitus with hyperglycemia (principal); I10 Essential (primary) hypertension | CPT/HCPCS: 81000 ==

== ENCOUNTER → 2023-07-31 08:28 | Outpatient (BNVA) | payer BC, SELFPAY | PROVIDERS: PCP Nurse Practitioner; Visit Provider Nurse Practitioner | DX: E11.65 Type 2 diabetes mellitus with hyperglycemia (principal); I10 Essential (primary) hypertension | CPT/HCPCS: 80053; 83036; 85025 ==

== ENCOUNTER → 2023-08-04 16:26 | Outpatient (BNVA) | payer BC, SELFPAY | PROVIDERS: PCP Nurse Practitioner; Visit Provider Nurse Practitioner | DX: E11.65 Type 2 diabetes mellitus with hyperglycemia (principal); I10 Essential (primary) hypertension | CPT/HCPCS: 81000 ==

== ENCOUNTER → 2023-10-16 09:00 | Outpatient (BNVA) | payer BC, SELFPAY | PROVIDERS: PCP Nurse Practitioner; Visit Provider Nurse Practitioner | DX: E11.65 Type 2 diabetes mellitus with hyperglycemia (principal); I10 Essential (primary) hypertension | CPT/HCPCS: 80053; 83036; 85025 ==

== ENCOUNTER → 2024-01-01 09:44 | Outpatient (BNVA) | payer BC, SELFPAY | PROVIDERS: PCP Nurse Practitioner; Visit Provider Nurse Practitioner | DX: E11.9 Type 2 diabetes mellitus without complications (principal) | CPT/HCPCS: 80053; 83036; 85025 ==

== ENCOUNTER → 2024-04-15 10:17 | Outpatient (BNVA) | payer BC, SELFPAY | PROVIDERS: PCP Nurse Practitioner; Visit Provider Nurse Practitioner | DX: E11.9 Type 2 diabetes mellitus without complications (principal) | CPT/HCPCS: 80053; 83036; 85025 ==

== ENCOUNTER → 2024-07-01 09:04 | Outpatient (BNVA) | payer BC, SELFPAY | PROVIDERS: PCP Nurse Practitioner; Visit Provider Nurse Practitioner | DX: E11.9 Type 2 diabetes mellitus without complications (principal); E11.65 Type 2 diabetes mellitus with hyperglycemia; R31.9 Hematuria, unspecified | CPT/HCPCS: 80053; 81003; 83036; 85025; 87086 ==

== ENCOUNTER → 2024-07-22 10:54 | Outpatient (BNVA) | payer BC, SELFPAY | PROVIDERS: PCP Nurse Practitioner; Visit Provider Nurse Practitioner | DX: E11.65 Type 2 diabetes mellitus with hyperglycemia (principal) | CPT/HCPCS: 81000 ==

== ENCOUNTER 2024-09-10 10:03 | Emergency (ER) | payer BC, SELFPAY ==
[2024-09-10 10:17] VITALS: BP 122/82; PULSE 89; RESP 18; TEMP 36.4; O2SAT 97
--- NOTE | 2024-09-10 10:39 | ED_ITS ---
HPI - Skin/Abscess/Foreign Bdy General: Chief complaint: Skin/Abscess/Foreign Body Stated complaint: extreme pain Time Seen by Provider: 09/10/24 10:04 Source: patient Mode of arrival: ambulatory Limitations: no limitations History of Present Illness: Patient is a 33-year-old female presents to ED today with a complaint of a right sided Bartholin gland cyst/abscess. Patient states she has had lesion over the past several days. She has been trying to treat conservatively but area continues to enlarge and become increasingly painful. She states she has had to have the gland incised previously 8 years ago. She has since had small flareups that she treats conservatively at home. She has met with gynecology once and talked about gland excision. MD complaint: abscess/boil Onset (ago): day(s) Tetanus up to date: yes Location: genitals Severity: severe Pain Consistency: constant Relieving factors: none Exacerbating factors: none Context: none Associated symptoms: Reports no associated symptoms; Deny fever(s), nausea or vomiting Treatments prior to arrival: none Related Data Home Medications Medication Instructions Recorded Confirmed ibuprofen 200 mg tablet (Advil) 600 mg PO Q6H PRN Pain 09/10/24 09/10/24 Previous Rx's Medication Instructions Recorded tirzepatide 7.5 mg/0.5 mL 7.5 mg (0.5 mL) SUBCUT .weekly #2 07/05/24 subcutaneous pen injector mL (Mounjaro) hydrocodone 5 mg-acetaminophen 325 1 tab PO Q6H PRN pain #14 tabs 09/10/24 mg tablet sulfamethoxazole 800 2 tab PO BID 7 days #28 tabs 09/10/24 mg-trimethoprim 160 mg tablet (Bactrim DS) Allergies Allergy/AdvReac Type Severity Reaction Status Date / Time erythromycin base Allergy rash Verified 07/05/24 15:59 Review of Systems Const: Denies: fever(s) GI: Denies: abdominal pain, nausea, vomiting or change in bowel habits : Reports: other (Bartholin gland enlargement); Denies: flank pain, difficulty voiding, dysuria, urinary frequency, urinary urgency, urinary hesitancy, vaginal odor, vaginal bleeding or vaginal discharge PFS ED PFSH: Medical History No pertinent past medical history neghx: thyroid,dvt/pe PCP: Elana Lizarraga Essential hypertension Fatty liver History of COVID-19 Obesity (BMI 30-39.9) Diabetes mellitus with hyperglycemia Surgical History History of laparoscopic-assisted vaginal hysterectomy (~08/29/22) LAVH for AUB and anemia performed by Dante. Negative pathology. History of bilateral tubal ligation History of 1)--2009--primary section for CPD; Dr. Stevens 2)--2013; repeat with BTL performed by Dr. Stevens History of brain tumor (~05/2009) Benign--performed by Dr. Fishman Neurosurgery [facility] Family History Family/Other Breast cancer Maternal Great Aunt--dx age 70's Mother Diabetes Hypertension Father Diabetes Grandfather Diabetes Maternal and Paternal Grandmother Diabetes Maternal and Paternal Hypertension Maternal Denies family history of Colon cancer Ovarian cancer Hyperlipidemia Uterine cancer Thyroid disease Stroke Social History Smoking and tobacco/nicotine status: never used tobacco/nicotine Second hand smoke exposure: No Alcohol intake: never Substance/Drug Use: never Adopted: No Caregiver/support person: No Lives independently: Yes Housing: House Marital status: Highest education level completed: Some College, No Degree service: No Current occupation: Self Do you think of yourself as: Straight/Heterosexual Female Reproductive History: Para: 2 Physical Exam Const: COMMON NORMALS: no acute distress, average body habitus, no limitations, healthy appearing, alert and well nourished : EXTERNAL FEMALE EXAM: Yes Bartholin cyst Bartholin's cyst laterality: right (abscess; extremely tender; very large) Neuro: SENSORIUM/ORIENTATION: Yes alert Procedures Abscess I/D Site: bartholin's gland Side (if applicable): right Local Anesthetic: lidocaine 1% and with epi Amount of anesthesia used (mL): 3.0 Technique: incised with #11 blade Amount of fluid expressed (mL): 40 Packing used?: plain Course Vital Signs: Vital signs: Vital Signs Temperature 97.6 F 09/10/24 10:17 Pulse Rate 89 09/10/24 10:17 Respiratory Rate 18 09/10/24 10:17 Blood Pressure 122/82 09/10/24 10:17 Pulse Oximetry 97 09/10/24 10:17 Oxygen Delivery Me thod Room Air 09/10/24 10:17 MDM - Skin/Abscess/Foreign Bdy Medicial Decision Making Patient had an extremely large Bartholin cyst/abscess drained here and packed. Will have her follow-up with gynecology. Will place her on Bactrim and give her something for pain. Return precautions discussed. Culture obtained. Medical Records I reviewed the patient's medical records. No radiology studies performed this visit Discharge Plan Discharge Patient Disposition: Home Clinical Impression: Bartholin's gland abscess Condition: Stable Prescriptions: New hydrocodone-acetaminophen 5-325 mg tablet 1 tab PO Q6H PRN (Reason: pain) Qty: 14 0RF Changed sulfamethoxazole-trimethoprim [Bactrim DS] 800-160 mg tablet 2 tab PO BID 7 Days Qty: 28 0RF No Action Mounjaro 7.5 mg/0.5 mL pen injector 7.5 mg SUBCUT .weekly Qty: 2 2RF ibuprofen [Advil] 200 mg Tablet 600 mg PO Q6H PRN (Reason: Pain) Discharge Orders: Discharge ED (Routine); Ordered 09/10/24 Ordered By: Chey Cabello Referrals: Kemar Lizarraga, [facility] CUT EXAMINER-C [Primary Care Provider] - Patient Instructions: Bartholin's Abscess, Opioid Safety, Pain Management Activity Restrictions/Additional Instructions: As we discussed, continue doing your sitz bath's multiple times daily. Avoid inadvertently removing your packing. Please follow-up with primary care next week for reevaluation. I will place case management referral to get you set up with gynecology for further evaluation and treatment options. Coding Level of Care Code ED Clinical Exercise Physiologist for Brooke Weinstein
[2024-09-10 11:40] VITALS: BP 129/77; PULSE 88; O2SAT 96
== END 2024-09-10 11:42 | disposition home or self-care (01) ==
PROVIDERS: Emergency Provider Physician Assistant; PCP Nurse Practitioner
DX: N75.0 Cyst of Bartholin's gland (principal); E11.65 Type 2 diabetes mellitus with hyperglycemia; I10 Essential (primary) hypertension
CPT/HCPCS: 56420; 87070; 87075; 87205; 99283

== ENCOUNTER → 2024-10-01 09:01 | Outpatient (BNVA) | payer BC, SELFPAY | PROVIDERS: PCP Nurse Practitioner; Visit Provider Nurse Practitioner | DX: E11.65 Type 2 diabetes mellitus with hyperglycemia (principal); E11.9 Type 2 diabetes mellitus without complications | CPT/HCPCS: 80053; 83036; 85025 ==

== ENCOUNTER → 2024-10-11 10:52 | Outpatient (BNVA) | payer BC, SELFPAY | PROVIDERS: PCP Nurse Practitioner; Visit Provider Nurse Practitioner | DX: M25.562 Pain in left knee (principal); M79.671 Pain in right foot; M79.672 Pain in left foot | CPT/HCPCS: 72100; 73562; 73630 ==

== ENCOUNTER → 2024-12-28 09:11 | Outpatient (BNVA) | payer BC, SELFPAY | PROVIDERS: PCP Nurse Practitioner; Visit Provider Nurse Practitioner | DX: E11.65 Type 2 diabetes mellitus with hyperglycemia (principal); E11.9 Type 2 diabetes mellitus without complications | CPT/HCPCS: 80053; 83036; 85025 ==

== ENCOUNTER → 2025-04-14 09:08 | Outpatient (BNVA) | payer BC, SELFPAY | PROVIDERS: PCP Nurse Practitioner; Visit Provider Nurse Practitioner | DX: E11.65 Type 2 diabetes mellitus with hyperglycemia (principal) | CPT/HCPCS: 80053; 80061; 83036; 85025 ==

== ENCOUNTER → 2025-09-13 08:32 | Outpatient (BNVA) | payer BC, SELFPAY | PROVIDERS: PCP Nurse Practitioner; Visit Provider Nurse Practitioner | DX: E11.9 Type 2 diabetes mellitus without complications (principal); E11.65 Type 2 diabetes mellitus with hyperglycemia | CPT/HCPCS: 80053; 80061; 83036; 85025 ==